=== PATIENT | female | born 1980 | race Caucasian/White ===

== ENCOUNTER 2024-01-07 16:11 | Emergency (ER) | payer OTHER ==
[2024-01-07 16:30] VITALS: BP 121/74; PULSE 87; RESP 18; TEMP 98.1; BMI 23.9
[2024-01-07 16:44] LABS: EPITHELIAL CELLS 0-5 /hpf
[2024-01-07] MEDS ORDERED: PHENAZOPYRIDINE HCL 100 MG TABLET (FP) ONE (18:09)
[2024-01-07] MEDS: PHENAZOPYRIDINE HCL 100 MG TABLET (FP) PO SCH (18:11)
== END 2024-01-07 18:16 | disposition home or self-care (01) ==
LOC: EDSEX 16:11 → FER 16:11
DX: N39.0 Urinary tract infection, site not specified (principal); R31.9 Hematuria, unspecified; R30.0 Dysuria; R10.30 Lower abdominal pain, unspecified; R68.83 Chills (without fever); R39.15 Urgency of urination
CPT/HCPCS: 81003; 81015; 87086; 87186; 99283-25

== ENCOUNTER 2024-05-16 09:10 | Emergency (ER) | payer OTHER ==
[2024-05-16 09:20] VITALS: BP 128/84; PULSE 72; RESP 18; TEMP 98.2; BMI 23.9
[2024-05-16] MEDS: ERYTHROMYCIN 0.5% OPHTHALMIC OINTMENT 3.5 GM TUBE OS SCH (10:08)
== END 2024-05-16 10:25 | disposition home or self-care (01) ==
LOC: FER 09:10
DX: H00.015 Hordeolum externum left lower eyelid (principal)
CPT/HCPCS: 99283-25

== ENCOUNTER 2024-07-01 20:39 | Emergency (ER) | payer OTHER ==
[2024-07-01 20:48] VITALS: BP 136/82; PULSE 120; RESP 16; TEMP 100.9; BMI 23.8
[2024-07-01] MEDS ORDERED: guaiFENesin/D-METHORPHAN HB 10 ML UNIT-DOSE CUPS ONE (21:00)
[2024-07-01] MEDS ORDERED: IBUPROFEN 600 MG TABLET (FP) PO ONE (21:00)
[2024-07-01] MEDS: guaiFENesin/D-METHORPHAN HB 10 ML UNIT-DOSE CUPS PO ONE (21:02)
[2024-07-01] MEDS: IBUPROFEN 600 MG TABLET (FP) PO ONE (21:02)
== END 2024-07-01 21:10 | disposition home or self-care (01) ==
LOC: FER 20:39
DX: R05.9 Cough, unspecified (principal); J02.9 Acute pharyngitis, unspecified; J06.9 Acute upper respiratory infection, unspecified; M79.10 Myalgia, unspecified site; Z20.822 Contact with and (suspected) exposure to COVID-19
CPT/HCPCS: 0241U-QW; 99283-25

== ENCOUNTER 2024-07-02 19:59 | Emergency (ER) | payer OTHER ==
[2024-07-02 20:12] VITALS: RESP 16; BMI 23.8
[2024-07-02] MEDS ORDERED: ACETAMINOPHEN 500 MG TABLET (FP) ONE (20:44)
[2024-07-02] MEDS: ACETAMINOPHEN 500 MG TABLET (FP) PO ONE (20:45)
[2024-07-02 21:54] VITALS: BP 114/74; PULSE 91; TEMP 98.2
[2024-07-02] MEDS: predniSONE 20 MG TABLET (UD) PO ONE (23:30)
[2024-07-02] MEDS ORDERED: predniSONE 20 MG TABLET (UD) ONE (23:33)
== END 2024-07-02 23:34 | disposition home or self-care (01) ==
LOC: FER 19:59
DX: J02.9 Acute pharyngitis, unspecified (principal)
CPT/HCPCS: 87651; 99283-25